=== PATIENT | male | born 1945 | race Caucasian/White ===

== ENCOUNTER → 2016-04-17 | Outpatient (CLI) | payer MEDICARE ==
[~2016-04-17] MED LIST: ADULT MULTIVI200 MCG PO; AFEDITAB CR60 MG PO; ARICEPT23 MG PO; ASPIRIN CHEWABL81 MG PO; COLCRYS0.6 MG PO; CYANOCOBAL1000 MCG/1 INJ; FISH OIL 1,0001 EACH PO; FLUOXETINE HCL40 MG PO; METHIMAZOLE5 MG PO; METHOTREXATE2.5 MG PO; MONTELUKAST SOD10 MG PO; MULTIVITAMINS1 EAC1 PO; MYLAN PO; NEURONTIN 100100 MG PO; NORCO 10-325 T1 EACH PO; PREDNISONE2.5 MG PO; PROTONIX 40 MG40 M1 PO; TOPROL XL 50 MG50 MG PO; VITAMIN D31000 UNIT PO; ZYLOPRIM 100 M100 MG PO
== END ==
LOC: RAD 08:47
DX: S46.012A Strain of muscle(s) and tendon(s) of the rotator cuff of left shoulder, initial encounter (principal)
CPT/HCPCS: 73040; 73201; Q9962

== ENCOUNTER → 2016-05-30 | Outpatient (CLI) | payer MEDICARE, OTHER ==
[2016-05-30 09:43] LABS: HEMOGLOBIN 12.7 gm/dl (14.0-17.5); RED BLOOD COUNT 4.11 M/UL (4.20-5.50)
== END ==
LOC: OPSV2 08:42
PROVIDERS: Orthopaedic Surgery
DX: Z01.810 Encounter for preprocedural cardiovascular examination (principal); Z01.812 Encounter for preprocedural laboratory examination; G56.02 Carpal tunnel syndrome, left upper limb
CPT/HCPCS: 36415; 80048; 85025; 86140; 93005

== ENCOUNTER → 2016-06-13 | Day surgery (SDC) | payer MEDICARE ==
[~2016-06-13] VITALS: Ht 167.6 cm; Wt 77.1 kg
== END | disposition home or self-care (01) ==
LOC: OR 05:35
PROVIDERS: Orthopaedic Surgery
PROC: 0RBK4ZZ Excision of Left Shoulder Joint, Percutaneous Endoscopic Approach (ICD-10-PCS; principal; 2016-06-13 08:15)
DX: S46.012A Strain of muscle(s) and tendon(s) of the rotator cuff of left shoulder, initial encounter (principal); S46.112A Strain of muscle, fascia and tendon of long head of biceps, left arm, initial encounter; S43.432A Superior glenoid labrum lesion of left shoulder, initial encounter; M06.9 Rheumatoid arthritis, unspecified; M19.012 Primary osteoarthritis, left shoulder; E78.5 Hyperlipidemia, unspecified; M94.212 Chondromalacia, left shoulder; I11.9 Hypertensive heart disease without heart failure; G47.30 Sleep apnea, unspecified; I25.10 Atherosclerotic heart disease of native coronary artery without angina pectoris; E07.9 Disorder of thyroid, unspecified; Z85.528 Personal history of other malignant neoplasm of kidney; Z90.49 Acquired absence of other specified parts of digestive tract; Z95.1 Presence of aortocoronary bypass graft; Z96.652 Presence of left artificial knee joint; Z95.5 Presence of coronary angioplasty implant and graft; Z98.41 Cataract extraction status, right eye; Z98.42 Cataract extraction status, left eye; Z79.899 Other long term (current) drug therapy; W06.XXXA Fall from bed, initial encounter
CPT/HCPCS: J0171; J0690; J2250; J2710; J2795; J3010; J7030; J7120

== ENCOUNTER → 2020-10-18 | Outpatient (CLI) | payer MEDICARE | LOC: HEART CORB 09:54 | DX: I25.10 Atherosclerotic heart disease of native coronary artery without angina pectoris (principal); R06.02 Shortness of breath; Z95.2 Presence of prosthetic heart valve; I27.20 Pulmonary hypertension, unspecified; I08.1 Rheumatic disorders of both mitral and tricuspid valves; R94.39 Abnormal result of other cardiovascular function study | CPT/HCPCS: 93306 ==